=== PATIENT | female | born 1965 | race Caucasian/White ===

== ENCOUNTER 2017-03-01 10:51 | Inpatient (IN) | payer BC ==
--- NOTE | 2017-02-15 11:03 | HP ---
Admitting History and Physical - Primary Care Physician PCP: Shin Wu - Admission Chief Complaint: High risk for breast cancer History of Present Illness: 52 yo female with strong family h/o breast cancer and BRCA 2 positivity presents for bilateral prophylactic bilateral mastectomy with reconstruction. Mammo (05/2016) and US done 07/2016 were negative. MRI done 01/2017 was WNL. Patient is now presenting for bilateral prophylactic mastectomy with reconstruction. History Source: Patient Limitations to Obtaining History: No Limitations - Past Medical History Psych: Yes: Anxiety - Past Surgical History Past Surgical History: Yes: (times 2) Additional Past Surgical History: JERMAIN/BSO 2015 prophylactically abdominoplasty 2012 Home Medications - Allergies Allergies/Adverse Reactions: Allergies Allergy/AdvReac Type Severity Reaction Status Date / Time No Known Allergies Allergy Verified 02/15/17 11:07 - Home Medications Home Medications (free text): lexapro 20 mg Family Disease History - Family Disease History Family Disease History: CA: Mother (ovarian at 38, breast at 45), Other: Sister (BRCA 2 positive) Review of Systems - Review of Systems Constitutional: reports: No Symptoms Cardiovascular: reports: No Symptoms Respiratory: reports: No Symptoms Physical Examination Constitutional: Yes: Well Nourished, Calm Breast(s): Yes: Other (Small B cup breasts without skin changes or nipple discharge. No suspicious masses or adenopathy noted bilaterally.) Problem List - Problems (1) BRCA gene mutation positive in female Code(s): Z15.01 - GENETIC SUSCEPTIBILITY TO MALIGNANT NEOPLASM OF BREAST Z15.02 - GENETIC SUSCEPTIBILITY TO MALIGNANT NEOPLASM OF OVARY Z15.09 - GENETIC SUSCEPTIBILITY TO OTHER MALIGNANT NEOPLASM (2) Family history of breast cancer in female Code(s): Z80.3 - FAMILY HISTORY OF MALIGNANT NEOPLASM OF BREAST (3) Family history of ovarian cancer Code(s): Z80.41 - FAMILY HISTORY OF MALIGNANT NEOPLASM OF OVARY Assessment/Plan Plan Bilateral prophylactic mastectomy with reconstruction
[2017-02-23 12:13] VITALS: BMI 21.0
[2017-03-01] MEDS ORDERED: ROPIVACAINE HCL 0.5% 30ML VIAL ONE (12:49)
[2017-03-01] MEDS ORDERED: DEXAMETHASONE SOD PHOSPHATE/PF 10 MG/ML SDV ONE (12:57)
[2017-03-01] MEDS ORDERED: MIDAZOLAM HCL 2 MG/2 ML SINGLE DOSE VIAL ONE ×2 (13:01→14:05)
[2017-03-01] MEDS ORDERED: PROPOFOL 20 ML ONE ×2 (13:01→13:02)
[2017-03-01] MEDS ORDERED: ROCURONIUM BROMIDE 50 MG/5 ML VIAL ONE ×2 (13:02→14:21)
[2017-03-01] MEDS ORDERED: LIDOCAINE HCL/PF 2% SDV 5ML VIAL ONE (13:06)
[2017-03-01] MEDS ORDERED: ceFAZolin SODIUM 1 GM VIAL ONE ×3 (13:07→13:55)
[2017-03-01] MEDS ORDERED: ONDANSETRON 4 MG/2 ML VIAL ONE ×2 (13:16→13:17)
[2017-03-01] MEDS ORDERED: DEXAMETHASONE SOD PHOSPHATE 4 MG/1 ML VIAL ONE ×2 (13:17)
[2017-03-01] MEDS ORDERED: GENTAMICIN SO4 80 MG/2 ML VIAL ONE (13:55)
[2017-03-01] MEDS ORDERED: ONDANSETRON 4 MG/2 ML VIAL IVPB PRN (13:58)
[2017-03-01] MEDS ORDERED: ZOLPIDEM TARTRATE 5 MG TABLET PO PRN (13:58)
[2017-03-01] MEDS ORDERED: PHENYLEPHRINE HCL 10 MG/1 ML SINGLE DOSE VIAL ONE (14:25)
[2017-03-01] MEDS ORDERED: ePHEDrine SULFATE 50 MG/1 ML AMPULE ONE (14:36)
[2017-03-01] MEDS ORDERED: SUCCINYLCHOLINE CHLORIDE 200 MG/10 ML VIAL ONE (14:39)
[2017-03-01] MEDS ORDERED: oxyCODONE HCL 5 MG TABLET PO PRN ×2 (15:55)
[2017-03-01] MEDS ORDERED: PROMETHAZINE HCL 25 MG/1 ML VIAL ONE (17:57)
[2017-03-01] MEDS: CEFAZOLIN 1 GM/D5W 50 ML IVPB SCH (20:30)
[2017-03-01] MEDS: oxyCODONE HCL 10 MG SUSTAINED ACTING TABLET PO SCH (22:01)
[2017-03-02] MEDS: CEFAZOLIN 1 GM/D5W 50 ML IVPB SCH ×5 (03:54→20:58)
[2017-03-02] MEDS: ACETAMINOPHEN 325 MG TABLET (FP) PO PRN ×2 (08:19→15:01)
[2017-03-02 08:49] LABS: MCH 30.4 pg (25.7-33.7); MCHC 33.8 g/dl (32.0-36.0); MEAN CELL VOLUME 89.9 fl (80-96); MEAN PLT VOLUME 8.9 fl (7.5-11.1); PLATELET COUNT 180 K/MM3 (134-434); RDW 12.4 % (11.6-15.6); WHITE BLOOD COUNT 7.4 K/mm3 (4.0-10.8)
--- NOTE | 2017-03-02 08:53 | PN ---
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 - Current Medication List Current Medications: Active Medications Acetaminophen (Tylenol -) 650 mg PO Q4H PRN PRN Reason: FEVER Last Admin: 03/02/17 08:19 Dose: 650 mg Escitalopram Oxalate (Lexapro -) 10 mg PO DAILY [facility] Fentanyl (Sublimaze Injection -) 50 mcg IVPUSH [id number] PRN PRN Reason: PAIN Stop: 03/04/17 15:56 Last Admin: 03/01/17 18:30 Dose: 50 mcg Cefazolin Sodium (Ancef 1 Gm Premixed Ivpb -) 50 mls @ 100 mls/hr IVPB Q6H-IV [facility] Stop: 03/08/17 14:59 Last Admin: 03/02/17 08:19 Dose: 100 mls/hr Dextrose/Sodium Chloride (D5-1/2ns -) 1,000 mls @ 100 mls/hr IV ASDIR [facility] Lactated Ringer's (Lactated Ringers Solution) 1,000 mls @ 125 mls/hr IV ASDIR [facility] Ondansetron HCl (Zofran Injection) 4 mg IVPB Q6H PRN PRN Reason: NAUSEA AND/OR VOMITING Oxycodone HCl (Oxycontin -) 10 mg PO BID [facility] Stop: 03/04/17 15:57 Last Admin: 03/01/17 22:01 Dose: 10 mg Oxycodone HCl (Roxicodone -) 5 mg PO Q3H PRN PRN Reason: PAIN LEVEL 1-5 Oxycodone HCl (Roxicodone -) 10 mg PO Q3H PRN PRN Reason: PAIN LEVEL 6-10 Zolpidem Tartrate (Ambien -) 5 mg PO HS PRN PRN Reason: Insomnia - Objective Vital Signs: Vital Signs Temperature 98.1 F 03/02/17 05:32 Pulse Rate 65 03/02/17 05:32 Respiratory Rate 18 03/02/17 05:32 Blood Pressure 95/49 03/02/17 05:32 O2 Sat by Pulse Oximetry (%) 98 03/02/17 05:32 Constitutional: Yes: Well Nourished, No Distress Breast(s): Yes: Other (Bilateral viable flaps, minimal echymosis steristrips and tegaderm in place ang drains functioning, left nipple slightly darker than right) Problem List - Problems (1) BRCA gene mutation positive in female Code(s): Z15.01 - GENETIC SUSCEPTIBILITY TO MALIGNANT NEOPLASM OF BREAST Z15.02 - GENETIC SUSCEPTIBILITY TO MALIGNANT NEOPLASM OF OVARY Z15.09 - GENETIC SUSCEPTIBILITY TO OTHER MALIGNANT NEOPLASM Assessment/Plan continue IV antibiotics oxycodone for pain spirometry OOB
--- NOTE | 2017-03-02 09:02 | OP ---
DATE OF OPERATION: 03/01/2017 PREOPERATIVE DIAGNOSIS: Genetic predisposition for breast cancer, BRCA2 positive. POSTOPERATIVE DIAGNOSIS: Genetic predisposition for breast cancer, BRCA2 positive. PROCEDURE: Bilateral total nipple-sparing mastectomies through an inframammary approach with bilateral direct implant reconstruction with saline implants placed prepectorally. ANESTHESIA: General endotracheal anesthesia. PRIMARY SURGEON: Ping Lora MD REACTOR KETTLE OPERATOR: LIBERTY [place] PRIMARY SURGEON FOR THE BILATERAL DIRECT IMPLANT RECONSTRUCTIONS: MD DR. ABDIRASHID Mcgovern'S REACTOR KETTLE OPERATOR: LIBERTY Espinoza COMPLICATIONS: There were no complications. Briefly, the patient is a 52-year-old postmenopausal white female of [place] descent. She has a strong family history with her mother who had both breast and ovarian cancer pass away at age 45. The patient herself tested BRCA2 positive in 2014 and underwent a prophylactic JERMAIN/BSO in April 2015. She presented for discussion regarding risk-reduction strategies for breast cancer and chose to have bilateral risk-reduction mastectomies. She was offered nipple-sparing mastectomy. She understood all risks and complications to the procedure, including risks of nipple loss, skin flap necrosis, hematoma, and infection. She was seen by Dr. Alicia preoperatively and she chose to have implant reconstructions with AlloDerm but chose to have the implants placed prepectorally and wanted saline implants. The patient did have a mammography and MRI recently which were negative. The patient was brought in for the procedure through same-day surgery on March 01, 2017. In the holding area, site verification was made and informed consent was obtained. She was marked preoperatively by the plastic surgeon. She did undergo a prepectoral nerve block preoperatively for postoperative pain control. She was then brought into the operating room and laid on the OR table in the supine position. Venodynes were placed on the lower extremities. She received 1 g of Ancef prior to incision. She underwent general endotracheal anesthesia. Both breasts were sterilely prepped and draped in the usual fashion. Bilateral inframammary incisions were marked out about 8 cm in length in the inframammary folds. The left mastectomy was first performed. Incision was made and the skin edges everted and the breast was retracted inferiorly using Rhys clamps. The skin flap was raised using the PEAK radiofrequency device superiorly to the level of the clavicle, medially to the level of the sternum, laterally to the level of the latissimus, and inferiorly below the level of the inframammary fold. The breast was taken down off the pectoralis major muscle from inferomedial to superolateral, completely removed intact. It was oriented with a long lateral, short superior suture. A retroareolar biopsy was taken underneath the left nipple-areolar complex and sent for frozen section and came back negative, so the nipple was spared. Skin flaps were trimmed for good cosmetic result and hemostasis was achieved. The wound was copiously irrigated with warm sterile saline. At this point, the right mastectomy was performed again through an 8-cm inframammary incision placed symmetrically to the left incision. The skin edges were everted and the breast was retracted inferiorly using [place] clamps. The skin flap was raised superiorly to the level of the clavicle, medially to the level of the sternum, laterally to the level of the latissimus, and inferiorly below the level of the inframammary fold. The breast was taken down off the pectoralis major muscle from inferomedial to superolateral, completely removed intact. It was oriented with a long lateral, short superior suture and weighed to allow for appropriate cosmetic result. A retroareolar biopsy was taken underneath the right nipple-areolar complex and sent for frozen section and came back negative, so the right nipple was spared as well. Skin flaps were trimmed for good cosmetic result and hemostasis was achieved. The wound was copiously irrigated with warm sterile saline. At this point in the case, Dr. Alicia became the primary surgeon and he performed bilateral direct implant reconstructions with prepectoral saline implants with full AlloDerm coverage. This will be dictated separately by Dr. Alicia. Two Jimmie drains will be placed around each implant, brought out through separate stab incisions on the lateral skin folds. The drains will be placed on J-P self bulb suction. They will be sutured in place using 3-0 nylon suture. Wounds will all be closed by Plastic Surgery using interrupted 3-0 deep dermal PDS suture and a running 4-0 subcuticular PDS suture. The patient's estimated blood loss was about 80 mL after the bilateral mastectomies and she was hemodynamically stable. All sponge and needle counts were correct at this point in the case. We did use the SPY skin perfusion device both after the mastectomy and after the implant reconstruction. She had good skin perfusion bilaterally. The patient will be extubated and recovered in the recovery room and admitted postoperatively for pain management and wound management. PING LORA M.D. [id number]
--- NOTE | 2017-03-02 09:04 | DS ---
Physical Examination Vital Signs: Vital Signs Temperature 98.1 F 03/02/17 05:32 Pulse Rate 65 03/02/17 05:32 Respiratory Rate 18 03/02/17 05:32 Blood Pressure 95/49 03/02/17 05:32 O2 Sat by Pulse Oximetry (%) 98 03/02/17 05:32 Findings/Remarks: patient underwent Bilateral total mastectomies with implant reconstruction for BRCA positivity without complications. She is ready for discharge . She received IV antibiotics and oxycodone for pain. No signs of infection . Discharge Summary Reason For Visit: BI PRO MAS AND RECON Current Active Problems BRCA gene mutation positive in female (Acute) Family history of breast cancer in female (Acute) Family history of ovarian cancer (Acute) Condition: Good - Instructions Diet, Activity, Other Instructions: Post Operative Instructions - [facility] We hope your recovery will be uneventful. For those of you who have been given general anesthesia, there is a possibility you might have some lightheadedness and possibly nausea. It is important that each patient, especially those who have had general anesthesia, follow these instructions, please: 1. Do NOT operate a motor vehicle for 24 hours. 2. Do NOT drink any alcoholic beverages for 24 hours. 3. Do NOT take any sedatives, narcotics, or tranquilizers for 24 hours unless specifically ordered by your surgeon. 4. Do NOT undertake any strenuous exercise or outside activity for 24 hours unless specifically permitted by your surgeon. 5. Eat light foods that are easy to digest. If you have any problems with nausea and vomiting, lie down and rest. If it continues, call your surgeon. 6. Call your surgeon AT ONCE if you have problems with: a. Bleeding b. Urinating c. Excessive pain or drainage d. Numbness If any problems occur, call your physician first. If you cannot reach him/her, call the Ambulatory Surgery Unit at [phone], or the Emergency Room at . Follow up with Drs. Wu / Artur in 7 days. Medication: Vicodin E-S OR Percocet 1-2 tablets every 4-6 hrs as needed for 5-7 days. Wound Care: Keep wound dry and clean for 48 hours. You may remove the dressing after 48 hours and may shower. Keep steri-strips in place until follow-up appointment No heavy lifting or strenuous activities. BREAST SURGERY INSTRUCTIONS Harley Wu M.D., FACS Shin Wu M.D., FACS Alondra Siddiqui M.D., FACS 1. Please call the office at to make a follow up appointment with your surgeon. This number can be also used for any urgent issues you may have. 2. Call us immediately if any of the following occur: *Bleeding from the incision or drain site (a small amount is normal) *Fever or chills *Redness and worsening tenderness around the surgical site *Drainage of pus or fluid from the incision or drain site 3. You may change the surgical dressing two (2) days after your surgery, and may shower then. If you have drains, you may shower after they have been removed, until then take a sponge bath. 4. It is normal for there to be some bruising and tenderness around the surgical site, and the breast may also be firm in this area. 5. Please wear a comfortable bra (sports or surgical bra) all day and all night until your first follow-up visit with your surgeon. 6. The pain medicine you have been prescribed may make you constipated; make sure you drink plenty of water. You may use an over the counter laxative if needed. 7. You may resume your normal diet after surgery, although you may want to avoid rich foods for the first twenty-four (24) hours after surgery. Alcoholic drinks should be avoided while taking the prescribed pain medicine. 8. You may resume normal activities as long as there is no discomfort, but do not do upper body exercises until after your follow-up appointment. Do not lift anything heavier than a large phone book. You may resume driving once you have stopped taking the prescribed pain medicine and feel comfortable doing arm movements. Referrals: Shin Wu MD [Staff Physician] - Disposition: HOME - Home Medications Comprehensive Discharge Medication List: Ambulatory Orders Escitalopram Oxalate [Lexapro -] 10 mg PO DAILY 02/23/17 Cefadroxil 500 mg PO BID #20 capsule 03/02/17 Oxycodone HCl/Acetaminophen [Percocet 5-325 mg Tablet] 1 - 2 tab PO Q6H PRN #30 tab MDD 6 03/02/17
--- NOTE | 2017-03-02 09:19 | PN ---
Progress Note (short form) - Note Progress Note: 52F POD1 s/p b/l prophylactic mastectomy with implant reconstruction under GA- ETT with b/l PECS blocks for post operative pain doing well. Pt states that pain is well controlled, reports no anesthetic complications.
[2017-03-02] MEDS: oxyCODONE HCL 10 MG SUSTAINED ACTING TABLET PO SCH ×2 (09:32→22:10)
[2017-03-02] MEDS: ESCITALOPRAM OXALATE 10 MG TABLET (FP) PO SCH (09:58)
[2017-03-02] MEDS: LACTATED RINGERS SOLUTION 1,000 ML IV SCH ×2 (15:01→18:24)
[2017-03-02] MEDS: DEXTROSE 5%-0.45% SALINE 1,000 ML IV SCH ×2 (15:01→18:24)
--- NOTE | 2017-03-02 16:47 | PN ---
Progress Note, Physician Chief Complaint: s/p bilateral mastectomies with direct implant pre pectoral and alloderm History of Present Illness: POD #1 s/p bilateral mastectomies with direct implant placement pre pectoral with alloderm - Current Medication List Current Medications: Active Medications Acetaminophen (Tylenol -) 650 mg PO Q4H PRN PRN Reason: FEVER Last Admin: 03/02/17 15:01 Dose: 650 mg Escitalopram Oxalate (Lexapro -) 10 mg PO DAILY [facility] Last Admin: 03/02/17 09:58 Dose: 10 mg Fentanyl (Sublimaze Injection -) 50 mcg IVPUSH [id number] PRN PRN Reason: PAIN Stop: 03/04/17 15:56 Last Admin: 03/01/17 18:30 Dose: 50 mcg Cefazolin Sodium (Ancef 1 Gm Premixed Ivpb -) 50 mls @ 100 mls/hr IVPB Q6H-IV [facility] Stop: 03/08/17 14:59 Last Admin: 03/02/17 15:01 Dose: 100 mls/hr Dextrose/Sodium Chloride (D5-1/2ns -) 1,000 mls @ 100 mls/hr IV ASDIR [facility] Last Admin: 03/02/17 15:01 Dose: Not Given Lactated Ringer's (Lactated Ringers Solution) 1,000 mls @ 125 mls/hr IV ASDIR [facility] Last Admin: 03/02/17 15:01 Dose: Not Given Ondansetron HCl (Zofran Injection) 4 mg IVPB Q6H PRN PRN Reason: NAUSEA AND/OR VOMITING Oxycodone HCl (Oxycontin -) 10 mg PO BID [facility] Stop: 03/04/17 15:57 Last Admin: 03/02/17 09:32 Dose: 10 mg Oxycodone HCl (Roxicodone -) 5 mg PO Q3H PRN PRN Reason: PAIN LEVEL 1-5 Oxycodone HCl (Roxicodone -) 10 mg PO Q3H PRN PRN Reason: PAIN LEVEL 6-10 Zolpidem Tartrate (Ambien -) 5 mg PO HS PRN PRN Reason: Insomnia - Objective Vital Signs: Vital Signs Temperature 98.8 F 03/02/17 14:07 Pulse Rate 70 03/02/17 14:07 Respiratory Rate 16 03/02/17 14:07 Blood Pressure 95/53 08/04/17 14:07 O2 Sat by Pulse Oximetry (%) 98 03/02/17 14:07 Constitutional: Yes: Well Nourished, No Distress, Calm Eyes: Yes: WNL HENT: Yes: WNL Neck: Yes: WNL Cardiovascular: Yes: WNL Respiratory: Yes: WNL Gastrointestinal: Yes: WNL ...Rectal Exam: Yes: Deferred Genitourinary: Yes: WNL Breast(s): Yes: Other (bilateral breast with appropriate swelling. Tegaderm dressing in place. Left nipple more dusky than right. LUIS FELIPE drains holding suction. Breast soft.) Musculoskeletal: Yes: WNL Extremities: Yes: WNL Edema: No Peripheral Pulses WNL: Yes Integumentary: Yes: WNL Wound/Incision: Yes: Clean/Dry, Steri Strips, Other (tegaderm) Neurological: Yes: WNL ...Motor Strength: WNL Psychiatric: Yes: WNL Additional Findings/Remarks: Cont pain management cont brandy avendaño cont LUIS FELIPE drains possible d/c tomorrow Labs: CBC, BMP 03/02/17 08:00
[2017-03-03] MEDS: ACETAMINOPHEN 325 MG TABLET (FP) PO PRN ×2 (01:39→07:51)
[2017-03-03] MEDS: CEFAZOLIN 1 GM/D5W 50 ML IVPB SCH ×2 (02:07→08:42)
[2017-03-03 07:19] VITALS: BP 101/53; PULSE 64; TEMP 98.1
--- NOTE | 2017-03-03 10:14 | OP ---
DATE OF OPERATION: 03/01/2017 SURGEON: Ping Alicia MD PRODUCTION QUALITY ANALYST SURGEON: Karen West PA-C PREOPERATIVE DIAGNOSES: 1. Bilateral acquired chest wall deformity, status post bilateral mastectomy. 2. Genetic history of breast carcinoma. POSTOPERATIVE DIAGNOSES: 1. Bilateral acquired chest wall deformity, status post bilateral mastectomy. 2. Genetic history of breast carcinoma. OPERATIVE PROCEDURE: 1. Right immediate breast reconstruction utilizing immediate insertion of saline-filled breast implant and AlloDerm reconstruction. 2. Left immediate breast reconstruction utilizing immediate insertion of saline-filled breast implant and AlloDerm reconstruction. 3. Intravenous injection of indocyanine green dye and intraoperative diagnostic evaluation of noncoronary intraoperative fluorescein vascular angiography x 2. ANESTHESIA: General. OPERATIVE INDICATION: Patient is a 52-year-old female who was brought to the operating room by Dr. Ping Wu for bilateral mastectomy for high-risk breast cancer. This will be dictated under separate cover. The risks and benefits of surgical versus nonsurgical alternatives as well as material complications were described on multiple occasions with the patient and today again in the holding area with the patient and her in attendance. She was marked in the standing position for outline of the reconstruction today. A full discussion of the use of saline versus silicone was held with the patient and the patient understood that the reconstruction with prepectoral placement and saline implants may require revisional surgery in the future for optimal results. That discussion was held on multiple occasions preoperatively. OPERATIVE PROCEDURE IN DETAIL: The patient was taken to the operating room by Dr. Wu and after being placed supine on the operating room table both arms were extended and padded. Venodyne boots were placed. The entire chest wall was painted with ChloraPrep solution over its entire extent, and then attention was turned to the mastectomy. The mastectomies were performed by Dr. Wu and will be dictated under separate cover. Upon completion of the mastectomies, the wounds were copiously irrigated and hemostasis obtained. At this point, the SPY intraoperative angiogram was performed after mastectomy. Isocyanide green dye, 4 mL, was injected into the intravascular system and then a SPY intraoperative angiogram was carried out by evaluating the blood flow to the skin of the mastectomy flaps. Both breasts appeared to have adequate blood flow to both skin and nipple-areolar complexes on the breasts on both sides. At this point, the reconstruction was proceeded. The right breast pocket was copiously irrigated, hemostasis obtained again, and then a saline implant was chosen for the patient. The patient elected to have saline over silicone for her own reasons. At this point, a Natrelle saline-filled breast implant style 68MP, 330-mL implant, was brought into the field. This was filled in a sterile fashion through a closed system. The AlloDerm which had been rehydrated on the back table was brought on to the field and used to completely cover the entire breast implant in the usual wrap fashion. On the back table, using 2-0 Vicryl sutures the sutures were placed into the AlloDerm, completely covering and wrapping the implant and suturing it in multiple places in order to accommodate the placement of the implant itself. At this point, a Ordoñez funnel was brought on to the field and the implant was inserted into the prepectoral space through this device. This material was then tacked into position on the medial, inferior, and lateral portions of the chest wall holding the device in the proper position. The exact same procedure was carried out symmetrically on the opposite breast. Weights of the specimens were right breast 179 g of tissue, left breast 165 g of tissue. Good shape and contour were seen and after copious irrigation 2 Joseph-San drains were brought out through separate stab wounds laterally on each breast. When this was accomplished and hemostasis secured, attention was turned to the closure. Using 3-0 PDS suture on the deep tissue, multiple sutures were placed into the deep tissues to close the wounds upon themselves and then a 2nd layer using 3-0 Biosyn suture was placed into the deep tissue and the dermis. A 3rd layer of 4-0 Biosyn suture was used to finish the wounds. The wounds were dressed with Dermabond and Steri-Strips and then a compressive dressing with Op-Sites was placed over the breasts in order to hold them into position and secured with Telfa. The patient tolerated the procedure well. She was awakened, extubated and transferred to the recovery room in satisfactory condition. PING ALICIA M.D. [id number]
[2017-03-03] MEDS: oxyCODONE HCL 10 MG SUSTAINED ACTING TABLET PO SCH (10:16)
[2017-03-03] MEDS: ESCITALOPRAM OXALATE 10 MG TABLET (FP) PO SCH (10:16)
--- NOTE | 2017-03-03 10:52 | PN ---
Progress Note, Physician Chief Complaint: Genetic susceptibility for breast cancer. BRCA2+ History of Present Illness: The patient has a strong family history of breast and ovarian cancer and was found to be BRCA2+. She underwent a prophylactic BSO in the past. She presented for bilateral prophylactic nipple sparing mastectomies which was performed on 03/29/17. She was admitted postoperatively for pain and wound management. - Current Medication List Current Medications: Active Medications Acetaminophen (Tylenol -) 650 mg PO Q4H PRN PRN Reason: FEVER Last Admin: 03/03/17 07:51 Dose: 650 mg Escitalopram Oxalate (Lexapro -) 10 mg PO DAILY FRANTZ Last Admin: 03/03/17 10:16 Dose: 10 mg Fentanyl (Sublimaze Injection -) 50 mcg IVPUSH [id number] PRN PRN Reason: PAIN Stop: 03/04/17 15:56 Last Admin: 03/01/17 18:30 Dose: 50 mcg Cefazolin Sodium (Ancef 1 Gm Premixed Ivpb -) 50 mls @ 100 mls/hr IVPB Q6H-IV FRANTZ Stop: 03/08/17 14:59 Last Admin: 03/03/17 08:42 Dose: 100 mls/hr Dextrose/Sodium Chloride (D5-1/2ns -) 1,000 mls @ 100 mls/hr IV ASDIR [facility] Last Admin: 03/02/17 18:24 Dose: Not Given Lactated Ringer's (Lactated Ringers Solution) 1,000 mls @ 125 mls/hr IV ASDIR [facility] Last Admin: 03/02/17 18:24 Dose: Not Given Ondansetron HCl (Zofran Injection) 4 mg IVPB Q6H PRN PRN Reason: NAUSEA AND/OR VOMITING Oxycodone HCl (Oxycontin -) 10 mg PO BID FRANTZ Stop: 03/04/17 15:57 Last Admin: 03/03/17 10:16 Dose: Not Given Oxycodone HCl (Roxicodone -) 5 mg PO Q3H PRN PRN Reason: PAIN LEVEL 1-5 Oxycodone HCl (Roxicodone -) 10 mg PO Q3H PRN PRN Reason: PAIN LEVEL 6-10 Zolpidem Tartrate (Ambien -) 5 mg PO HS PRN PRN Reason: Insomnia - Objective Vital Signs: Vital Signs Temperature 98.1 F 03/03/17 06:00 Pulse Rate 64 03/03/17 06:00 Respiratory Rate 18 03/03/17 06:00 Blood Pressure 101/53 03/03/17 06:00 O2 Sat by Pulse Oximetry (%) 98 03/03/17 08:57 Constitutional: Yes: Well Nourished, No Distress, Calm Eyes: Yes: WNL HENT: Yes: WNL Neck: Yes: WNL Cardiovascular: Yes: Regular Rate and Rhythm Respiratory: Yes: Regular, CTA Bilaterally Gastrointestinal: Yes: Normal Bowel Sounds, Soft ...Rectal Exam: Yes: Deferred Genitourinary: Yes: WNL Breast(s): Yes: Other (Wounds clean, dry, and intact. Drains functioning well. Skin flaps warm and viable.) Musculoskeletal: Yes: WNL Extremities: Yes: WNL Integumentary: Yes: WNL Wound/Incision: Yes: Clean/Dry, Well Approximated Neurological: Yes: Alert, Oriented ...Motor Strength: WNL Psychiatric: Yes: WNL Labs: CBC, BMP 03/02/17 08:00 Problem List - Problems (1) BRCA gene mutation positive in female Assessment/Plan: The patient is doing well POD#2 s/p bilateral nipple sparing mastectomies with direct to implant reconstructions due to her BRCA2+ status. Wounds clean dry and intact. She has good pain control on percocet. Drains functioning well. Skin flaps warm and viable. Stable for discharge today on percocet for pain and duricef antibiotics. No heavy lifting or exercise. Drain teaching. Follow up with Drs. Wu and Ravin in 1 week. Code(s): Z15.01 - GENETIC SUSCEPTIBILITY TO MALIGNANT NEOPLASM OF BREAST Z15.02 - GENETIC SUSCEPTIBILITY TO MALIGNANT NEOPLASM OF OVARY Z15.09 - GENETIC SUSCEPTIBILITY TO OTHER MALIGNANT NEOPLASM
--- NOTE | 2017-03-05 17:21 | OP ---
DATE OF OPERATION: 03/01/2017 SURGEON: Ping Alicia MD FOLLOW UP REP SURGEON: Karen West PA-C PREOPERATIVE DIAGNOSIS: Bilateral acquired chest wall deformity status post bilateral mastectomy. This is a combined dictation with Dr. Ping Wu for bilateral implant and AlloDerm reconstruction of the breasts. PROCEDURE: 1. Right immediate breast reconstruction utilizing immediate insertion of silicone breast implant and AlloDerm reconstruction. 2. Left immediate breast reconstruction utilizing immediate insertion of silicone breast implant and AlloDerm reconstruction. 3. Intravenous injection of indocyanine green dye and intraoperative diagnostic evaluation of noncoronary intraoperative fluorescein vascular angiography x 2. The patient underwent bilateral mastectomy and will be dictated under separate cover by Dr. Wu. ANESTHESIA: General. OPERATIVE PROCEDURE IN DETAIL: The patient was taken to the operating room. After induction of general anesthesia in the supine position, both arms were extended and padded. Venodyne boots were placed. The entire chest wall was painted with ChloraPrep solution over its entire extent, and sterile drapes were placed in the usual fashion. The markings, which had been made in the standing position preoperatively, were reoutlined with the patient's knowledge. Timeout procedure was performed. Attention was turned by Dr. Wu to the mastectomies. Bilateral inframammary incisions were made and Dr. Wu performed mastectomies. This will be dictated under separate cover. Upon completion of the mastectomies, the wounds were copiously irrigated and attention was turned to the right breast. A subpectoral dissection was begun on the right breast, superiorly from the second rib, medially to the sternal fibers, and down to the inframammary fold, elevating the pectoralis major muscle from its insertion. At this point, an 8.0 x 16.0 sheet of AlloDerm was brought into the field and sutured superiorly along the pectoralis major muscle after rehydration. This was carried along the lateral mammary fold and down the side of the breast reconstruction. At this point, a implant was chosen. The left breast tissue removed was g, and the right breast approximately g. This implant was placed and then sutured with 3-0 Vicryl suture continued along the inframammary fold, completely covering the implant itself. The exact same procedure was carried out symmetrically on the opposite breast, also placing a implant in the same subpectoral pocket. Good symmetry was seen in the sitting position. After the implants were in place, the patient was injected with 10 mL of Isocyanide green dye and the SPY imaging system was brought into the field. The skin flowed to the right and left breasts and the nipple-areolar complex, and the entire skin flaps were evaluated and seen to be viable with good blood flow. Two Joseph-San drains were brought out through separate stab wounds laterally. The Smart Infuser pump catheter was inserted medially and into the subpectoral position. Both wounds were closed symmetrically using 3-0 PDS suture on the deep tissue, 3-0 in a deep dermal fashion, and 4-0 in a subcuticular fashion. Both wounds were dressed sterilely with Mastisol and Steri-Strips with a surgical bra and a compression strap. The patient tolerated the procedure well. She was awakened, extubated and transferred to the recovery room in satisfactory condition. The certified registered dental assistant was present during the entire portion of the operation and closure. PING ALICIA M.D. [id number]
--- NOTE | 2017-03-07 10:43 | PATH ---
Surgical Pathology Report Patient Name: JOANIE MATHEWS Med. Rec. #: [id number] /Age/Gender: 1965 (Age: 52) / F Account: [id number] Location: [facility] MED-SURG Taken: 03/01/2017 Received: 03/01/2017 Reported: 03/07/2017 Physicians: Shin Wu M.D. Specimen(s) Received A: LEFT BREAST RETROAREOLAR BIOPSY. FS#1 B: RIGHT BREAST RETROAREOLAR BIOPSY. FS#2 C: LEFT BREAST MASTECTOMY D: RIGHT BREAST MASTECTOMY Clinical History BRCA 2+ Mastectomy: bilateral, prophylactic Intraoperative Consult Diagnosis A. Left breast retroareolar biopsy, frozen section: Negative for malignancy. B. Right breast retroareolar biopsy, frozen section: Negative for malignancy. Ectatic ducts with periductal fibrosis and marked chronic inflammation, Mabel Ku, 03/01/17 Final Diagnosis A. BREAST, LEFT, RETROAREOLA, BIOPSY (FS): BENIGN BREAST TISSUE. NEGATIVE FOR MALIGNANCY. B. BREAST, RIGHT, RETROAREOLA, BIOPSY (FS): BENIGN BREAST TISSUE SHOWING ECTATIC DUCTS WITH PERIDUCTAL FIBROSIS AND MARKED CHRONIC INFLAMMATION. NEGATIVE FOR MALIGNANCY. C. BREAST, LEFT, NIPPLE-SPARING MASTECTOMY: BENIGN BREAST TISSUE SHOWING FOCAL SECRETORY CHANGE AND SMALL FIBROADENOMAS. D. BREAST, RIGHT, NIPPLE-SPARING MASTECTOMY: BENIGN BREAST TISSUE SHOWING FIBROCYSTIC CHANGES. Electronically Signed Yelena Howard M.D. Gross Description A. Received fresh labeled "left breast retroareolar biopsy," is a 1.0 x 0.7 x 0.2 cm portion of red and yellow soft tissue. frozen section is performed on the specimen. The frozen section residue is entirely submitted in one cassette. B. Received fresh labeled "right breast retroareolar biopsy," is a 1.5 x 1.2 x 0.2 cm portion of red and yellow soft tissue. Frozen section is performed on the specimen. The frozen section residue is entirely submitted in one cassette. C. Received in formalin, labeled "left breast mastectomy," is a 154 gram, 15.5 x 11.5 x 2.0 cm. left mastectomy specimen with a short suture marking the superior aspect and a long suture marking the lateral aspect of the specimen, per the surgeon. There is no skin or nipple present. The deep margin is inked black and the anterior soft tissue margin is inked blue. The specimen is serially sectioned from medial to lateral. Sectioning reveals multifocal white fibrous tissue. [employer] sections are submitted in 15 cassettes as follows: 1-3-upper outer quadrant; 4-7-lower outer quadrant; 8-10-upper inner quadrant; 11-13-lower inner quadrant; 14-anterior soft tissue margin; 15-deep margin. Time to formalin fixation: 43 minutes Total formalin fixation time: Approximately 25 hours. D. Received in formalin, labeled "right breast mastectomy," is a 160 gram, 12.5 x 12.5 x 2.0 cm. right mastectomy specimen with a short suture marking the superior aspect and a long suture marking the lateral aspect of the specimen, per the surgeon. There is no skin or nipple present. The deep margin is inked black and the anterior soft tissue margin is inked blue. The specimen is serially sectioned from lateral to medial. Sectioning reveals multifocal white fibrous tissue with focally dilated ducts. [employer] sections are submitted in 16 cassettes as follows: 1-4-upper outer quadrant; 5-7-lower outer quadrant; 8-9-upper inner quadrant; 10-14-the lower inner quadrant; 15-anterior soft tissue margin; 16-deep margin. Time to formalin fixation: 41 minutes Total formalin fixation time: Approximately 25 hours. 03/02/201703/02/2017
== END 2017-03-03 15:29 | disposition home or self-care (01) | DRG 585 ==
LOC: FM/S 11:35 → EDSTATUS 12:30 → FM/S 18:04
PROVIDERS: ADMIT Surgery Surgical Oncology; ATTEND Surgery Surgical Oncology
PROC: 0HTV0ZZ Resection of Bilateral Breast, Open Approach (ICD-10-PCS; principal; 2017-03-01 14:27)
PROC: 0HRV0JZ Replacement of Bilateral Breast with Synthetic Substitute, Open Approach (ICD-10-PCS; 2017-03-01 14:27)
DX: Z40.01 Encounter for prophylactic removal of breast (principal); Z15.02 Genetic susceptibility to malignant neoplasm of ovary; Z15.09 Genetic susceptibility to other malignant neoplasm; Z15.01 Genetic susceptibility to malignant neoplasm of breast
CPT/HCPCS: 36415; 85027; 88307-TC; 88331-TC; 94010; 94760

== ENCOUNTER 2018-07-04 11:15 | Day surgery (SDC) | payer BC ==
[2018-06-28 09:42] VITALS: BMI 21.0
[2018-07-04] MEDS ORDERED: MIDAZOLAM HCL 2 MG/2 ML SINGLE DOSE VIAL ONE ×2 (11:55→11:58)
[2018-07-04] MEDS ORDERED: fentaNYL CITRATE 250 MCG/5 ML VIAL ONE (11:58)
[2018-07-04] MEDS ORDERED: PROPOFOL 20 ML ONE (11:58)
[2018-07-04] MEDS ORDERED: BUPIVACAINE HCL/PF 2.5 MG/ML - 30 ML VIAL IJ ONE ×2 (12:15→12:25)
[2018-07-04] MEDS ORDERED: ePHEDrine SULFATE 50 MG/1 ML AMPULE ONE (12:18)
[2018-07-04] MEDS ORDERED: LIDOCAINE 1%/EPI 1:100000 (20 ML MULTI DOSE VIAL) ONE (12:25)
[2018-07-04] MEDS ORDERED: ACETAMINOPHEN 325 MG TABLET (FP) PO ONE (14:05)
[2018-07-04] MEDS ORDERED: ACETAMINOPHEN 325 MG TABLET (FP) ONE (14:11)
[2018-07-04] MEDS ORDERED: ACETAMINOPHEN 325 MG TABLET (FP) PO PRN (15:29)
[2018-07-04] MEDS ORDERED: ONDANSETRON 4 MG/2 ML VIAL IVPUSH PRN (15:29)
[2018-07-04] MEDS ORDERED: oxyCODONE HCL 5 MG TABLET PO PRN ×2 (15:29)
[2018-07-04] MEDS ORDERED: LACTATED RINGERS SOLUTION 1,000 ML IV SCH (15:30)
[2018-07-04 16:27] VITALS: BP 103/67; PULSE 70; TEMP 98.6
--- NOTE | 2018-07-07 09:41 | OP ---
DATE OF OPERATION: 07/04/2018 SURGEON: Ping Alicia MD COUNT ROOM CLERK: Kobe Guallpa PA-C PREOPERATIVE DIAGNOSES: 1. Bilateral acquired chest wall deformity, status post bilateral mastectomy. 2. Asymmetry of reconstructed chest wall. 3. Mechanical complication of breast implant with malposition. POSTOPERATIVE DIAGNOSES: 1. Bilateral acquired chest wall deformity, status post bilateral mastectomy. 2. Asymmetry of reconstructed chest wall. 3. Mechanical complication of breast implant with malposition. OPERATIVE PROCEDURE: 1. Right breast reconstruction utilizing other technique. 2. Left breast reconstruction utilizing other technique. 3. Right breast capsulotomy, removal and replacement of right breast implant. 4. Left breast capsulotomy, removal and replacement of left breast implant. OPERATIVE INDICATION: The patient is a young woman who underwent bilateral mastectomy a few years ago and now presents with gross asymmetry of the chest wall, implant malposition with lateralization, and need for the above procedures. The risks and benefits of surgical versus nonsurgical alternatives as well as the material complications were described to the patient on multiple occasions preoperatively. She agreed to the planned procedure and chose the [place] implant for structured breast implant with saline fill. All questions were asked and answered regarding the procedure and use of this implant. OPERATIVE PROCEDURE IN DETAIL: The patient was taken to the operating room and, after induction of general anesthesia in the supine position, both arms were extended and padded, Venodyne boots were placed. The entire chest wall was prepped with ChloraPrep solution over its entire extent and, after allowing drying of the abdominal and chest area, sterile drapes were placed in the usual fashion. At this point, attention was turned after timeout to the mastectomy scars. The mastectomy scars were injected with 1% local lidocaine anesthesia with 1:100,000 epinephrine and then the area of the flank was also prepped and draped and injected with 1% local lidocaine anesthesia. At this point, an incision was made in the lateral portion of the mastectomy scar on the right breast, down through the skin, to the subcutaneous tissue. Subcutaneous tissues were dissected down to the underlying breast capsule. The capsule was then opened using the electrocautery and the previously-placed implant was removed and sent for pathologic diagnosis. Upon examination of the pocket, in the suprapectoral position, it showed extensive lateralization of the implant. Cauterization was carried out in the pocket itself and then a capsulorrhaphy was performed using 0 V-Loc suture in a running fashion. Using the V-Loc suture, the lateral gutter and lateral portion of the pocket was sutured closed in order to medialize and centralize the implant position by placement. A 3-layered closure of capsulorrhaphy was carried out in multiple layers on the lateral portion of the right breast pocket and then the implant, which the patient had previously chosen, was placed into the pocket. This [place] implant, which had a serial number of [id number], size 300 mL [place] implant, was placed into the breast pocket. A total volume of approximately 320 mL of fill volume was placed into the right breast implant in the front and the back of the implant, as described by the implant parts washer. This showed good shape and contour compared to the opposite side and then the exact same procedure was carried out symmetrically on the left breast, also performing capsulorrhaphy with 0 V-Loc suture and placement of a new 2nd implant of the same size and volume. Copious irrigation of the wound and implant was carried out using triple-antibiotic solution and then attention was turned to the flanks. An incision was made both in the left and right sides of the body and dissection was carried down into the deep tissues over the lateral oblique muscle and external oblique fascia. Tissue was then harvested for reconstructive purposes on the right and left flanks on the deep aspect of the fascia and then transferred to the back table. This tissue was washed, cleansed, and prepared for reconstruction with other technique. The tissue was then transferred to the right breast on the superior, medial, central, and inferior portions of the right breast and the inferior, central, medial, and superior portions of the left breast. Upon transfer of the tissue, the wound was closed in layers using 3-0 PDS suture on the deep capsule and deep tissues of the implant both on the right and left breasts symmetrically. A 2nd layer of 3-0 PDS suture was placed into the deep dermal tissues and a 3rd layer of 4-0 Biosyn suture was used in a subcuticular fashion for a 3-layer closure of both breasts. The donor site was then closed using interrupted running sutures along the flank margins. All wounds were dressed sterilely with Dermabond, Steri-Strips, and a compressive dressing. The patient showed good shape in the sitting position bilaterally. A Surgi-Bra was placed with a Fluff dressing and the wounds were covered with Tegaderm and compression dressings. She tolerated the procedure well. She was awakened and transferred to the recovery room after extubation. PING ALICIA M.D. [id number]
--- NOTE | 2018-07-09 15:59 | PATH ---
Surgical Pathology Report Patient Name: JOANIE MATHEWS Med. Rec. #: [id number] /Age/Gender: 1965 (Age: 53) / F Account: [id number] Location: [facility] AMBULATORY Taken: 07/04/2018 Received: 07/04/2018 Reported: 07/09/2018 Physicians: Mehdi Alicia Specimen(s) Received RIGHT AND LEFT BREAST IMPLANTS Clinical History History of breast cancer Final Diagnosis IMPLANTS, RIGHT AND LEFT BREAST, REMOVAL: IMPLANTS, DESCRIBED (GROSS EXAMINATION ONLY). Electronically Signed Yelena Howard M.D. Gross Description Received fresh labeled "right and left breast implants," are 2 clear, rubbery, intact breast implants averaging 12 cm in diameter and 3.5 cm in depth. No soft tissue is present. No sections are submitted, gross only. 07/05/2018 saudi07/05/2018
== END 2018-07-04 16:27 | disposition home or self-care (01) ==
LOC: FASU 11:15
PROVIDERS: ATTEND Plastic Surgery
PROC: 0HRV0JZ Replacement of Bilateral Breast with Synthetic Substitute, Open Approach (ICD-10-PCS; 2018-07-04)
PROC: 0HPU0JZ Removal of Synthetic Substitute from Left Breast, Open Approach (ICD-10-PCS; 2018-07-04)
PROC: 0HPT0JZ Removal of Synthetic Substitute from Right Breast, Open Approach (ICD-10-PCS; 2018-07-04)
PROC: 0HRV0JZ Replacement of Bilateral Breast with Synthetic Substitute, Open Approach (ICD-10-PCS; 2018-07-04)
PROC: 0HRV07Z Replacement of Bilateral Breast with Autologous Tissue Substitute, Open Approach (ICD-10-PCS; principal; 2018-07-04 12:23)
PROC: 0HNV0ZZ Release Bilateral Breast, Open Approach (ICD-10-PCS; 2018-07-04 12:23)
DX: M95.4 Acquired deformity of chest and rib (principal); Z90.13 Acquired absence of bilateral breasts and nipples; N65.1 Disproportion of reconstructed breast; T85.41XA Breakdown (mechanical) of breast prosthesis and implant, initial encounter; T85.42XA Displacement of breast prosthesis and implant, initial encounter; Y82.8 Other medical devices associated with adverse incidents; Y83.8 Other surgical procedures as the cause of abnormal reaction of the patient, or of later complication, without mention of misadventure at the time of the procedure; Y92.89 Other specified places as the place of occurrence of the external cause
CPT/HCPCS: 88300-TC

== ENCOUNTER 2020-12-02 11:03 | Day surgery (SDC) | payer BC ==
[2020-11-22 17:22] VITALS: BMI 21.9
[2020-12-02] MEDS ORDERED: LIDOCAINE HCL/PF 2% SDV 5ML VIAL ONE (14:40)
[2020-12-02] MEDS ORDERED: EPINEPHrine/PF 1 MG/1 ML (1:1,000) AMPULE ONE (14:41)
[2020-12-02] MEDS ORDERED: MIDAZOLAM HCL 2 MG/2 ML SINGLE DOSE VIAL ONE (14:41)
[2020-12-02] MEDS ORDERED: LIDOCAINE HCL 1%, 10 MG/ML (20ML VIAL) ONE (14:41)
[2020-12-02] MEDS ORDERED: PROPOFOL 20 ML ONE (14:41)
[2020-12-02] MEDS ORDERED: LIDOCAINE 1%/EPI 1:100000 (20 ML MULTI DOSE VIAL) ONE (14:45)
[2020-12-02] MEDS ORDERED: ceFAZolin SODIUM 1 GM VIAL ONE ×2 (15:03→15:04)
[2020-12-02] MEDS ORDERED: GENTAMICIN SO4 80 MG/2 ML VIAL ONE (15:04)
[2020-12-02] MEDS ORDERED: ONDANSETRON 4 MG/2 ML VIAL ONE (15:18)
[2020-12-02] MEDS ORDERED: DEXAMETHASONE SOD PHOSPHATE 4 MG/1 ML VIAL ONE (15:18)
[2020-12-02] MEDS ORDERED: ONDANSETRON 4 MG/2 ML VIAL IVPUSH PRN (16:33)
[2020-12-02] MEDS ORDERED: oxyCODONE HCL 5 MG TABLET PO PRN (16:33)
[2020-12-02] MEDS ORDERED: ACETAMINOPHEN 325 MG TABLET (FP) PO PRN (16:33)
[2020-12-02] MEDS ORDERED: ACETAMINOPHEN 325 MG TABLET (FP) ONE (16:40)
[2020-12-02] MEDS ORDERED: LACTATED RINGERS SOLUTION 1,000 ML IV SCH (16:45)
[2020-12-02 17:47] VITALS: BP 120/64; PULSE 62; TEMP 97.9
== END 2020-12-02 17:47 | disposition home or self-care (01) ==
LOC: FASU 11:03
PROVIDERS: ATTEND Plastic Surgery
PROC: 0JX60ZC Transfer Chest Subcutaneous Tissue and Fascia with Skin, Subcutaneous Tissue and Fascia, Open Approach (ICD-10-PCS; 2020-12-02)
PROC: 0HNV0ZZ Release Bilateral Breast, Open Approach (ICD-10-PCS; principal; 2020-12-02 15:14)
PROC: 0HWU0JZ Revision of Synthetic Substitute in Left Breast, Open Approach (ICD-10-PCS; 2020-12-02 15:14)
PROC: 0HWT0JZ Revision of Synthetic Substitute in Right Breast, Open Approach (ICD-10-PCS; 2020-12-02 15:14)
DX: M95.4 Acquired deformity of chest and rib (principal); N64.89 Other specified disorders of breast; Z90.13 Acquired absence of bilateral breasts and nipples; N65.1 Disproportion of reconstructed breast; T85.41XA Breakdown (mechanical) of breast prosthesis and implant, initial encounter
CPT/HCPCS: 94760